=== PATIENT | male | born 1960 | race Caucasian/White ===

== ENCOUNTER 2024-06-24 14:02 | Emergency (ER) | payer MEDICAID ==
[~2024-06-24] VITALS: Ht 185.4 cm; Wt 136.4 kg
[2024-06-24 16:21] VITALS: BP 152/68; PULSE 67; RESP 15; TEMP 97.9; O2SAT 99
== END 2024-06-24 16:24 | disposition home or self-care (01) ==
LOC: ER 14:03
DX: S62.652A Nondisplaced fracture of middle phalanx of right middle finger, initial encounter for closed fracture (principal); S60.221A Contusion of right hand, initial encounter; X58.XXXA Exposure to other specified factors, initial encounter; Y93.89 Activity, other specified; Y92.89 Other specified places as the place of occurrence of the external cause; Y99.8 Other external cause status
CPT/HCPCS: 29125; 73130; 99283; A4565